=== PATIENT | male | born 1945 | race Caucasian/White ===

== ENCOUNTER 2021-10-04 15:00 | Inpatient (IN) | payer OTHER ==
[~2021-10-04] VITALS: Ht 177.8 cm; Wt 91.7 kg
[2021-10-05 14:26] LABS: HEMATOCRIT 39.9 % (42-54); MEAN CORPUSCULAR HEMOGLOBIN 28.8 pg (27.0-33.0); MEAN CORPUSCULAR HGB CONC 31.6 g/dL (32.0-36.0); MEAN CORPUSCULAR VOLUME 91.3 fL (79-99); RED BLOOD CELL COUNT(AUTO) 4.37 MIL/uL (4.50-6.20); RED CELL DISTRIBUTION WIDTH 13.2 % (11.0-15.5); WHITE BLOOD COUNT (AUTO) 8.5 K/uL (4.8-10.8)
[2021-10-05 14:39] LABS: CREATININE 1.1 mg/dL (0.5-1.5)
[2021-10-05 14:43] LABS: INR 0.96 (0.85-1.15); PROTHROMBIN TIME 10.5 SEC (9.6-11.6)
[2021-10-05 14:45] LABS: PARTIAL THROMBOPLASTIN TIME 25.6 SEC (26.3-35.5)
[2021-10-05 14:48] VITALS: BP 185/91
[2021-10-05] MEDS ORDERED: TAMS-1 PO (14:48)
[2021-10-05] MEDS ORDERED: ENAL20TA18 PO (14:48)
[2021-10-05] MEDS ORDERED: AMLO-258 PO (14:48)
[2021-10-05] MEDS ORDERED: HYDR-4153 PO (14:48)
[2021-10-05] MEDS ORDERED: METO50TA18 PO (14:48)
[2021-10-05] MEDS ORDERED: ASPI-1026 PO (14:48)
[2021-10-05] MEDS ORDERED: CLOP75TA32 PO (14:48)
[2021-10-05] MEDS ORDERED: SIMV40TA59 PO (14:48)
[2021-10-06] VITALS (21 sets, daily range): BP systolic 121–172; BP diastolic 49–94
[2021-10-06] MEDS ORDERED: LACTATED RINGERS 1000ML 1,000 ML IV ONE (07:45)
[2021-10-06] MEDS ORDERED: MIDAZOLAM HCL 1 MG/ML 2ML VIAL ONE (08:04)
[2021-10-06] MEDS ORDERED: PROPOFOL 10 MG/ML 20ML VIAL IV ONE (08:08)
[2021-10-06] MEDS ORDERED: ROCURONIUM 10MG/1ML SYR 10 MG/ML ML ONE ×2 (08:09→08:47)
[2021-10-06] MEDS ORDERED: CEFAZOLIN SODIUM 1 GM VIAL ONE (08:24)
[2021-10-06] MEDS ORDERED: OCTYL 2-CYANOACRYLATE 1 EACH TP ONE (08:25)
[2021-10-06] MEDS ORDERED: FENTANYL CITRATE PF 50 MCG/1 ML 2ML VIAL ONE ×2 (09:15→09:55)
[2021-10-06] MEDS ORDERED: ONDANSETRON 4MG INJ ONE (09:15)
[2021-10-06] MEDS ORDERED: EPHEDRINE SULFATE 50 MG/ML AMPULE ONE (09:37)
[2021-10-06] MEDS ORDERED: PROTAMINE SULFATE 10 MG/ML 5 ML VIAL ONE (09:40)
[2021-10-06] MEDS ORDERED: HEPARIN 10,000 UNIT/10ML (1,000 UNIT/ML) VIAL ONE (09:40)
[2021-10-06] MEDS ORDERED: GLYCOPYRROLATE 1 MG/5 ML SYRINGE ONE (09:55)
[2021-10-06] MEDS ORDERED: NEOSTIGMINE 5MG/5ML SYR IV ONE (09:55)
[2021-10-06] MEDS ORDERED: ACETAMINOPHEN 325 MG TAB PO PRN (10:30)
[2021-10-06] MEDS ORDERED: TRAMADOL HCL 50 MG TABLET PO PRN ×2 (10:30)
[2021-10-06] MEDS: MORPHINE 2 MG SYG IVP PRN ×3 (11:01→22:13)
[2021-10-06] MEDS: HYDRALAZINE 25MG TABLET PO SCH ×2 (11:51→20:10)
[2021-10-06] MEDS: ENALAPRIL MALEATE 10 MG TABLET PO SCH ×2 (11:51→20:11)
[2021-10-06] MEDS: METOPROLOL TARTRATE 50 MG TAB PO SCH ×2 (11:51→20:11)
[2021-10-06] MEDS: ASPIRIN 81 MG EC TAB PO SCH (11:51)
[2021-10-06] MEDS: AMLODIPINE 5 MG TAB PO SCH (11:51)
[2021-10-06] MEDS: CEFAZOLIN SODIUM 1 GM VIAL IVP SCH (17:07)
[2021-10-06] MEDS ORDERED: SIMVASTATIN 20 MG TABLET PO SCH (21:00)
[2021-10-06] MEDS ORDERED: CLOPIDOGREL 75MG TAB PO SCH (21:00)
[2021-10-06] MEDS ORDERED: TAMSULOSIN HCL 0.4 MG CAP.ER.24H PO SCH (21:00)
[2021-10-07] VITALS (15 sets, daily range): BP systolic 122–152; BP diastolic 36–65
[2021-10-07] MEDS: CEFAZOLIN SODIUM 1 GM VIAL IVP SCH ×2 (01:39→08:17)
[2021-10-07 07:47] LABS: BASOPHILS % (AUTO) 0.2 % (0.0-5.0); EOSINOPHILS % (AUTO) 0.1 % (0.0-8.0); HEMATOCRIT 36.1 % (42-54); LYMPHOCYTES % (AUTO) 13.3 % (21.0-51.0); MEAN CORPUSCULAR HEMOGLOBIN 28.8 pg (27.0-33.0); MEAN CORPUSCULAR HGB CONC 31.6 g/dL (32.0-36.0); MEAN CORPUSCULAR VOLUME 91.2 fL (79-99); MONOCYTES % (AUTO) 9.1 % (3.0-13.0); PLATELET COUNT (AUTO) 205 K/uL (130-400); RED BLOOD CELL COUNT(AUTO) 3.96 MIL/uL (4.50-6.20); WHITE BLOOD COUNT (AUTO) 12.6 K/uL (4.8-10.8)
[2021-10-07 07:59] LABS: ALBUMIN 3.4 g/dL (3.5-5.0); BILIRUBIN,TOTAL 0.3 mg/dL (0.2-1.0); CREATININE 1.1 mg/dL (0.5-1.5); MAGNESIUM 2.3 mg/dL (1.80-2.40); POTASSIUM 4.3 mmol/L (3.5-5.1); TOTAL PROTEIN, SERUM 6.4 g/dL (6.0-8.3)
[2021-10-07] MEDS: ASPIRIN 81 MG EC TAB PO SCH (08:17)
[2021-10-07] MEDS: AMLODIPINE 5 MG TAB PO SCH (08:17)
[2021-10-07] MEDS: HYDRALAZINE 25MG TABLET PO SCH (08:18)
[2021-10-07] MEDS: METOPROLOL TARTRATE 50 MG TAB PO SCH (08:18)
[2021-10-07] MEDS: ENALAPRIL MALEATE 10 MG TABLET PO SCH (08:18)
== END 2021-10-07 17:48 | disposition home or self-care (01) | DRG 254 ==
LOC: EDSTATUS 15:00 → DAHIP 10-06 06:57 → 2BH 10-06 10:25
PROVIDERS: ADMIT Thoracic Surgery (Cardiothoracic Vascular Surgery); ATTEND Thoracic Surgery (Cardiothoracic Vascular Surgery)
PROC: 5A0935A Assistance with Respiratory Ventilation, Less than 24 Consecutive Hours, High Flow/Velocity Cannula (ICD-10-PCS; 2021-10-06)
PROC: 041K0JL Bypass Right Femoral Artery to Popliteal Artery with Synthetic Substitute, Open Approach (ICD-10-PCS; principal; 2021-10-06 08:00)
DX: I73.9 Peripheral vascular disease, unspecified (principal); Z20.822 Contact with and (suspected) exposure to COVID-19; I10 Essential (primary) hypertension; E78.5 Hyperlipidemia, unspecified; I25.10 Atherosclerotic heart disease of native coronary artery without angina pectoris; N40.0 Benign prostatic hyperplasia without lower urinary tract symptoms; I25.2 Old myocardial infarction
CPT/HCPCS: 36415; 71045; 80048; 80053; 83735; 85025; 85027; 85610; 85730; 86850; 86900; 86901; 86923; 87635; 93005; A4344; C1768; G0378; J0690; J1644; J2250; J2405; J2704; J2710; J2720; J3010; J3490; J7030; J7040; J7120